=== PATIENT | female | born 1970 | race Caucasian/White ===

== ENCOUNTER 2016-12-02 21:08 | Emergency (ER) | payer SELFPAY ==
[~2016-12-02] VITALS: Ht 165.1 cm; Wt 81.0 kg
[2016-12-03] MEDS ORDERED: DEXAMETHASONE 10 MG/ML VIAL IM SCH
[2016-12-03] MEDS ORDERED: KETOROLAC 60MG/2ML VIAL IM ONE
[2016-12-03] MEDS ORDERED: HYDROCODONE/ACETAMINOPHEN 10/325MG TABLET PO ONE
[2016-12-03] MEDS ORDERED: SODIUM CHLORIDE 0.9% 1,000 ML IV ONE (01:15)
[2016-12-03] MEDS ORDERED: MORPHINE SULFATE 2 MG/ML CPJ (NOT FOR IM USE) IV ONE ×2 (01:15)
[2016-12-03 02:14] VITALS: BP 120/70
== END 2016-12-03 04:10 | disposition home or self-care (01) ==
LOC: ER 21:48
DX: M19.032 Primary osteoarthritis, left wrist (principal); M19.031 Primary osteoarthritis, right wrist; M17.0 Bilateral primary osteoarthritis of knee
CPT/HCPCS: 81025; 96372; 99284; J1100; J1885; Z7610; J7030